=== PATIENT | male | born 1955 | race Caucasian/White ===

== ENCOUNTER 2017-02-20 14:06 | Emergency (ER) | payer MEDICARE ==
[2017-02-20] MEDS ORDERED: OXYCODONE-ACETAMINOPHEN 5-325 MG TABLET PO ONE (15:00)
--- NOTE | 2017-02-20 15:01 | ER Document Report ---
ED Medical Screen (RME) - General Chief Complaint: Headache Stated Complaint: HEADACHE Time Seen by Provider: 02/20/17 14:56 Notes: 3 days of right-sided temporal pain with intermittent blurry vision to his right eye. Patient states 2 days ago he had transient left leg weakness that has resolved. He denies any fevers, neck pain, chest pain, lightheadedness or dizziness. Traumatic brain injury in 2008 secondary to a fall. TRAVEL OUTSIDE OF THE [place] IN LAST 30 DAYS: No - Related Data Allergies/Adverse Reactions: chlorpromazine [From Thorazine] Allergy (Verified 02/20/17 14:14) Past Medical History Renal/ Medical History: Denies: Hx Peritoneal Dialysis Physical Exam - Vital signs Vitals: Temp Pulse Resp BP Pulse Ox 97.9 F 63 15 140/79 H 98 02/20/17 14:14 02/20/17 14:14 02/20/17 14:14 02/20/17 14:14 02/20/17 14:14 Course - Vital Signs Vital signs: Temp Pulse Resp BP Pulse Ox 97.9 F 63 15 140/79 H 98 02/20/17 14:14 02/20/17 14:14 02/20/17 14:14 02/20/17 14:14 02/20/17 14:14
[2017-02-20] MEDS ORDERED: NORMAL SALINE 1000 ML 1,000 ML IV ONE (15:48)
[2017-02-20] MEDS ORDERED: KETOROLAC TROMETHAMINE INJ/PF 30 MG/1 ML SDV IV ONE (15:48)
--- NOTE | 2017-02-20 15:49 | ER Document Report ---
ED Headache - General Chief Complaint: Headache Stated Complaint: HEADACHE Time Seen by Provider: 02/20/17 14:56 Mode of Arrival: Ambulatory Information source: Patient Notes: Patient is a 61-year-old male with a history of high blood pressure who presents to the ER today for 3 days of a headache to his right taoism and the back of his head. Patient has no history of headaches. Patient does state that 4 days ago he had some numbness and tingling, weakness to the left leg only. He states that that is completely resolved at this time. He denies any chest pain, shortness of breath, weakness or numbness anywhere. TRAVEL OUTSIDE OF THE [place] IN LAST 30 DAYS: No - Related Data Allergies/Adverse Reactions: chlorpromazine [From Thorazine] Allergy (Verified 02/20/17 14:14) Past Medical History - General Information source: Patient - Social History Smoking Status: Current Every Day Smoker Family History: Reviewed & Not Pertinent Patient has suicidal ideation: No Patient has homicidal ideation: No Renal/ Medical History: Denies: Hx Peritoneal Dialysis Review of Systems - Review of Systems Constitutional: No symptoms reported EENT: No symptoms reported Cardiovascular: No symptoms reported Respiratory: No symptoms reported Gastrointestinal: No symptoms reported Genitourinary: No symptoms reported Male Genitourinary: No symptoms reported Musculoskeletal: No symptoms reported Skin: No symptoms reported Hematologic/Lymphatic: No symptoms reported Neurological/Psychological: See HPI Physical Exam - Vital signs Vitals: Temp Pulse Resp BP Pulse Ox 97.9 F 63 15 140/79 H 98 02/20/17 14:14 02/20/17 14:14 02/20/17 14:14 02/20/17 14:14 02/20/17 14:14 - Notes Notes: PHYSICAL EXAMINATION: GENERAL: Well-appearing, but in no acute distress. HEAD: Atraumatic, normocephalic. EYES: Pupils equal round and reactive to light, extraocular movements intact, sclera anicteric, conjunctiva are normal. ENT: ear canals without erythema or foreign body, TMs pearly sevilla with good bony landmarks, nares patent, oropharynx clear without exudates. Moist mucous membranes. NECK: Normal range of motion, supple without lymphadenopathy LUNGS: CTAB and equal. No wheezes rales or rhonchi. HEART: Regular rate and rhythm without murmurs ABDOMEN: Soft, no tenderness. No guarding, no rebound BACK: no vertebral tenderness, normal ROM GI/: no CVA tenderness EXTREMITIES: Normal range of motion, no pitting edema. No cyanosis. NEUROLOGICAL: Cranial nerves grossly intact. Normal sensory/motor exams. Good and equal strength bilaterally, Kernig and Brudzinski's signs negative, Romberg' s test normal, normal heel to martínez testing PSYCH: Normal mood, normal affect. SKIN: Warm, Dry, normal turgor, no rashes or lesions noted Course - Re-evaluation Re-evalutation: 02/20/17 17:14 Labs are unremarkable today including normal cardiac enzymes, patient is neurologically intact. CT of the head reveals a subacute posterior cerebral artery infarction, nothing acute. Patient headache is resolved with Toradol and p.o. fluids. 02/20/17 17:14 - Vital Signs Vital signs: Temp Pulse Resp BP Pulse Ox 97.9 F 67 16 138/74 H 98 02/20/17 14:14 02/20/17 17:22 02/20/17 17:22 02/20/17 17:22 02/20/17 17:22 - Laboratory Result Diagrams: 02/20/17 15:49 02/20/17 17:04 Discharge - Discharge Clinical Impression: Recent cerebrovascular accident (CVA) Headache Qualifiers: Headache type: unspecified Headache chronicity pattern: acute headache Intractability: not intractable Qualified Code(s): R51 - Headache Condition: Stable Disposition: HOME, SELF-CARE Additional Instructions: Return immediately for any new or worsening symptoms. Follow up with primary care provider, call tomorrow to make followup appointment. Prescriptions: Naproxen 500 mg PO BID #20 tablet
--- NOTE | 2017-02-20 15:57 | RADIOLOGY REPORT (SQ) ---
EXAM DESCRIPTION: CT HEAD WITHOUT COMPLETED DATE/TIME: 02/20/2017 3:35 pm REASON FOR STUDY: Pit1; right sided temporal headache COMPARISON: None. TECHNIQUE: Axial images acquired through the brain without intravenous contrast. Images reviewed wi th bone, brain and subdural windows. Images stored on PACS. All CT scanners at this facility use dose modulation, iterative reconstruction, and/or weight based d osing when appropriate to reduce radiation dose to as low as reasonably achievable (ALARA). [facility]: Dose Right [facility]: CareDose [facility]: Dose Right [facility]: Teradose 4D [facility]: Smart [employer] RADIATION DOSE: Up-to-date CT equipment and radiation dose reduction techniques were employed. CTDIv ol: 64.6 mGy. DLP: 1163 mGy-cm. mGy. LIMITATIONS: None. FINDINGS: VENTRICLES: Normal size and contour. CEREBRUM: Decreased density in the posterior right parietal lobe and the right occipital lobe appeara nce of which is consistent with subacute infarction. Small amount of increased density in the cortex but no significant hemorrhage. Mild chronic small vessel ischemic disease involving white matter bi laterally. Additional small areas of subacute white matter infarction cannot be excluded. CEREBELLUM: No masses. No hemorrhage. No alteration of density. No evidence for acute infarction. EXTRAAXIAL SPACES: No fluid collections. No masses. ORBITS AND GLOBE: No intra- or extraconal masses. Normal contour of globe without masses. CALVARIUM: No fracture. PARANASAL SINUSES: Mild mucosal thickening in the ethmoid sinuses. SOFT TISSUES: No mass or hematoma. OTHER: No other significant finding. IMPRESSION: 1. Subacute right posterior cerebral artery infarction. 2. Mild chronic small vessel ischemic disease involving the white matter. TECHNICAL DOCUMENTATION: JOB ID: [id number] Quality ID # [id number]: Final reports with documentation of one or more dose reduction techniques (e.g., Au tomated exposure control, adjustment of the mA and/or kV according to patient size, use of iterative reconstruction technique) 2010 [employer]- All Rights Reserved
[2017-02-20 16:02] LABS: ABSOLUTE BASOPHILS # (AUTO) 0.1 10^3/uL (0.0-0.2); ABSOLUTE EOSINOPHILS # (AUTO) 0.1 10^3/uL (0.0-0.6); ABSOLUTE LYMPHOCYTES (AUTO) 2.7 10^3/uL (0.5-4.7); ABSOLUTE NEUT (AUTO) 5.8 10^3/uL (1.7-8.2); BASOPHILS % (AUTO) 0.8 % (0-2); HEMATOCRIT 48.8 % (37.9-51.0); HEMOGLOBIN 16.6 g/dL (13.5-17.0); LYMPHOCYTES % (AUTO) 28.4 % (13-45); MEAN CORPUSCULAR HEMOGLOBIN 31.2 pg (27.0-33.4); MEAN CORPUSCULAR VOLUME 92 fl (80-97); MONOCYTES % (AUTO) 10.4 % (3-13); RED BLOOD COUNT 5.32 10^6/uL (4.35-5.55); RED CELL DISTRIBUTION WIDTH 12.9 % (11.5-14.0); SEGMENTED NEUTROPHILS % (AUTO) 59.4 % (42-78); WHITE BLOOD COUNT 9.7 10^3/uL (4.0-10.5)
[2017-02-20 16:38] LABS: ERYTHROCYTE SEDIMENTATION RATE 13 mm/hr (0-20)
[2017-02-20 17:23] VITALS: BP 138/74
[2017-02-20 17:30] LABS: ANION GAP 13 (5-19); BLOOD UREA NITROGEN 14 mg/dL (7-20); CALCIUM 9.5 mg/dL (8.4-10.2); CARBON DIOXIDE 26 mmol/L (22-30); CHLORIDE 100 mmol/L (98-107); CREATININE RESULT 0.67 mg/dL (0.52-1.25); GLUCOSE 88 mg/dL (75-110); POTASSIUM 4.4 mmol/L (3.6-5.0)
== END 2017-02-20 17:22 | disposition home or self-care (01) ==
LOC: ER 14:06
DX: R51 Headache (principal); I10 Essential (primary) hypertension; F17.200 Nicotine dependence, unspecified, uncomplicated; Z86.73 Personal history of transient ischemic attack (TIA), and cerebral infarction without residual deficits
CPT/HCPCS: 99284; 96374; 36415; 85025; 85652; 80048; 84484; 70450; J1885; A9270

== ENCOUNTER 2017-03-25 07:43 | Emergency (ER) | payer MEDICARE ==
[2017-03-25] MEDS ORDERED: DIPHENHYDRAMINE HCL 50 MG/ML VIAL IV ONE (08:40)
[2017-03-25] MEDS ORDERED: METOCLOPRAMIDE HCL INJ/PF 10 MG/2 ML SDV IV ONE (08:40)
--- NOTE | 2017-03-25 08:43 | ER Document Report ---
ED Headache - General Chief Complaint: Headache Stated Complaint: BLOOD PRESSURE ISSUES,HEADACHE Time Seen by Provider: 03/25/17 08:15 Mode of Arrival: Ambulatory Information source: Patient Notes: Patient presents complaining of right-sided headache pain for the past month. Patient states that he was seen here last month for this complaint and states that nothing was done. Patient has not followed up with a primary doctor since that visit. Patient denies any head injury or fever. Patient states that light makes his headache worse. TRAVEL OUTSIDE OF THE [place] IN LAST 30 DAYS: No - HPI Patient complains to provider of: Headache Patient reports: Prior CVA Onset: Other - 1 month Timing: Still present Quality of pain: Sharp Pain Level: 5 Context: denies: Head injury, Meningitis exposure Associated symptoms: Photophobia. denies: Confusion, Dizzy, Double/blurred vision, Fever, Lightheaded, Nausea/vomiting, Neck pain, Speech problems, Stiff neck Exacerbated by: Light Similar symptoms previously: Yes Recently seen / treated by doctor: Yes - Related Data Allergies/Adverse Reactions: chlorpromazine [From Thorazine] Allergy (Verified 03/25/17 08:08) Past Medical History - General Information source: Patient - Social History Smoking Status: Current Every Day Smoker Chew tobacco use (# tins/day): No Drug Abuse: None Occupation: None Lives with: Spouse/Significant other Family History: Reviewed & Not Pertinent - Medical History Medical History: Negative Renal/ Medical History: Denies: Hx Peritoneal Dialysis Surgical Hx: Negative - Immunizations Hx Diphtheria, Pertussis, Tetanus Vaccination: Yes Review of Systems - Review of Systems Constitutional: No symptoms reported. denies: Fever, Recent illness EENT: No symptoms reported. denies: Sinus pressure, Sinus discharge Cardiovascular: No symptoms reported. denies: Chest pain, Dizziness Respiratory: No symptoms reported. denies: Cough, Short of breath Gastrointestinal: No symptoms reported. denies: Nausea, Vomiting Genitourinary: No symptoms reported Male Genitourinary: No symptoms reported Musculoskeletal: No symptoms reported. denies: Back pain Skin: No symptoms reported Hematologic/Lymphatic: No symptoms reported Neurological/Psychological: denies: Dementia, Weakness, Headaches, Speech impairment, Numbness Physical Exam - Vital signs Vitals: Temp Pulse Resp BP Pulse Ox 97.4 F 68 16 179/99 H 96 03/25/17 07:50 03/25/17 07:50 03/25/17 07:50 03/25/17 07:50 03/25/17 07:50 - General General appearance: Appears well, Alert In distress: None - HEENT Head: Normocephalic, Atraumatic Eyes: Normal Conjunctiva: Normal Extraocular movements intact: Yes Pupils: PERRL Ears: Normal External canal: Normal Nasal: Normal Mouth/Lips: Normal Pharynx: Normal. No: Erythema, Exudate Neck: Normal, Supple. No: Brudzinski, Kernig's, Lymphadenopathy, Meningismus - Respiratory Respiratory status: No respiratory distress Chest status: Nontender Breath sounds: Wheezing - faint scattered. No: Rales, Rhonchi, Stridor Chest palpation: Normal - Cardiovascular Rhythm: Regular Heart sounds: S1 appreciated, S2 appreciated Murmur: No - Back Back: Normal, Nontender. No: CVA tenderness, Vertebra tenderness - Extremities General upper extremity: Normal inspection, Normal ROM General lower extremity: Normal inspection, Normal ROM - Neurological Neuro grossly intact: Yes Cognition: Normal Orientation: AAOx4 [place] Coma Scale Eye Opening: Spontaneous [place] Coma Scale Verbal: Oriented [place] Coma Scale Motor: Obeys Commands [place] Coma Scale Total: 15 Speech: Normal. No: Dysarthria Cranial nerves: Normal. No: Facial palsy, Tongue deviation Cerebellar coordination: Normal, Heel-martínez, Finger-nose rhombey, Rapid alt. movements. No: Gait ataxia Motor strength normal: LUE, RUE, LLE, RLE Additional motor exam normals: Equal cardiologist - Psychological Associated symptoms: Aggressive, Angry - Skin Skin Temperature: Warm Skin Moisture: Dry Skin Color: Normal Course - Re-evaluation Re-evalutation: 03/25/17 08:[address] rao who advises repeating ct of head 03/25/17 10:21 pt refuses IV, requests oral medication for GONZALEZ 03/25/17 10:35 Reviewed results of patient's CT report with Dr. Rao. Recommends starting patient on antihypertensive medication. Patient is refusing any lab work to be drawn today. Agrees with discharge plan of care 03/25/17 11:51 Patient reports that headache pain is a most completely resolved at this time. Discussed worsening signs or symptoms that patient should return immediately for. Patient advised that he will need to follow-up with a primary doctor to further evaluate why he had a stroke and to follow-up his blood pressure. Patient states his does have a blood pressure monitor at home and can check his blood pressure. Patient without any focal neurologic deficit at this time. - Vital Signs Vital signs: Temp Pulse Resp BP Pulse Ox 97.6 F 59 L 20 143/87 H 98 03/25/17 12:03 03/25/17 12:03 03/25/17 12:03 03/25/17 12:03 03/25/17 12:03 - Diagnostic Test Radiology reviewed: Reports reviewed Discharge - Discharge Clinical Impression: Hypertension Qualifiers: Hypertension type: unspecified Qualified Code(s): I10 - Essential (primary) hypertension Headache Qualifiers: Headache type: unspecified Headache chronicity pattern: unspecified pattern Intractability: not intractable Qualified Code(s): R51 - Headache Condition: Stable Disposition: HOME, SELF-CARE Instructions: Family Physicians / Practices, Headache ([facility]), High Blood Pressure, Requiring Treatment ([facility]), Stroke ([facility]) Additional Instructions: Return immediately for any new or worsening symptoms Followup with a primary care provider, call tomorrow to make a followup appointment Take a baby aspirin each day to help minimize future stroke risk Prescriptions: Amlodipine Besylate 5 mg PO DAILY #30 tab Butalb/Acetaminophen/Caffeine [Fioricet (50-325-40 mg) Tablet] 1 - 2 tab PO Q4H #12 each [facility]: [facility] [Provider Group] - Follow up tomorrow
[2017-03-25] MEDS ORDERED: METOCLOPRAMIDE HCL 10 MG TABLET PO ONE (10:20)
[2017-03-25] MEDS ORDERED: DIPHENHYDRAMINE HCL 50 MG CAPSULE PO ONE (10:20)
[2017-03-25] MEDS ORDERED: ACETAMINOPHEN 325 MG TABLET PO ONE (10:20)
--- NOTE | 2017-03-25 10:21 | RADIOLOGY REPORT (SQ) ---
EXAM DESCRIPTION: CT HEAD WITHOUT COMPLETED DATE/TIME: 03/25/2017 10:12 am REASON FOR STUDY: r side GONZALEZ COMPARISON: 02/20/2017 TECHNIQUE: Axial images acquired through the brain without intravenous contrast. Images reviewed wi th bone, brain and subdural windows. Images stored on PACS. All CT scanners at this facility use dose modulation, iterative reconstruction, and/or weight based d osing when appropriate to reduce radiation dose to as low as reasonably achievable (ALARA). [facility]: Dose Right [facility]: CareDose [facility]: Dose Right [facility]: Teradose 4D [facility]: Smart [employer] RADIATION DOSE: Up-to-date CT equipment and radiation dose reduction techniques were employed. CTDIv ol: 64.6 mGy. DLP: 1163 mGy-cm. mGy. LIMITATIONS: None. FINDINGS: VENTRICLES: Prominent. CEREBRUM: No masses. No hemorrhage. No midline shift. Stable areas of chronic infarction involving the right cerebral hemisphere. Additional areas of of low density in the white matter most likely d ue to chronic micro-vascular ischemic change. No evidence for acute infarction. CEREBELLUM: No masses. No hemorrhage. No alteration of density. No evidence for acute infarction. EXTRAAXIAL SPACES: Mild age-related involutional change. No fluid collections. No masses. ORBITS AND GLOBE: No intra- or extraconal masses. Normal contour of globe without masses. CALVARIUM: No fracture. PARANASAL SINUSES: No fluid or mucosal thickening. SOFT TISSUES: No mass or hematoma. OTHER: No other significant finding. IMPRESSION: NO CT EVIDENCE OF ACUTE ISCHEMIA, HEMORRHAGE, OR MASS LESION. NO SIGNIFICANT CHANGE FRO M PRIOR STUDY. TECHNICAL DOCUMENTATION: JOB ID: [id number] Quality ID # 436: Final reports with documentation of one or more dose reduction techniques (e.g., Au tomated exposure control, adjustment of the mA and/or kV according to patient size, use of iterative reconstruction technique) 2010 [employer]- All Rights Reserved
[2017-03-25] MEDS ORDERED: AMLODIPINE BESYLATE 5 MG TABLET PO ONE (10:57)
[2017-03-25 12:04] VITALS: BP 143/87
== END 2017-03-25 12:04 | disposition home or self-care (01) ==
LOC: ER 07:43
DX: I10 Essential (primary) hypertension (principal); R51 Headache; H53.149 Visual discomfort, unspecified; R06.2 Wheezing; R45.4 Irritability and anger; F17.200 Nicotine dependence, unspecified, uncomplicated; Z88.8 Allergy status to other drugs, medicaments and biological substances
CPT/HCPCS: 99284; 70450; A9270 ×4

== ENCOUNTER → 2018-10-30 | Day surgery (SDC) | payer MEDICARE ==
[~2018-10-30] MED LIST: LIDOCAINE 1% INJ-PF (10 MG/ML) 30 ML SDV ONE
--- NOTE | 2018-10-30 13:08 | RADIOLOGY REPORT (SQ) ---
EXAM DESCRIPTION: U/S BIOPSY SUPERFIC LYMPH NODE COMPLETED DATE/TIME: 10/30/2018 11:17 am REASON FOR STUDY: R59.0 LOCALIZED ENLARGED LYMPH NODES R59.0 LOCALIZED ENLARGED LYMPH NODES COMPARISON: None. LIMITATIONS: None. PROCEDURE: The procedure was explained to the patient, including the possibility of complications as bleeding and infection. The patient asked that we proceed with the procedure. The enlarged left submandibular triangle lymph node was localized with ultrasound. Lymph node measur es 4 x 3 x 2 cm in size. Standard sterile technique and local anesthesia with 3 mL of 1% Lidocaine targeted to the right subma ndibular triangle nodule. With direct ultrasound visualization, a 14 gauge core needle was advanced into the nodule. 1 core of tissue was submitted to Dr. Scott from pathology. She stated that the s pecimen was adequate for diagnosis. Pathology is pending. A ribbon clip was placed in the biopsied left submandibular triangle lymph node. No immediate postprocedure complications. IMPRESSION: Successful ultrasound guided biopsy of a 4 x 3 x 2 cm left submandibular triangle lymph node. Pathology is pending. COMMENT: Patient medication list reviewed:Yes- Quality ID# [id number]:Eligible professional attests to docu menting in the medical record they obtained, updated, or reviewed the patient's current medications. TECHNICAL DOCUMENTATION: JOB ID: [id number] [employer]- All Rights Reserved TECHNIQUE: SITE OF CONCERN: Left submandibular triangle Reading location - IP/workstation name: [email or web address]
== END ==
LOC: RAD 09:31
PROVIDERS: ATTEND Internal Medicine Geriatric Medicine
DX: C96.9 Malignant neoplasm of lymphoid, hematopoietic and related tissue, unspecified (principal); R59.0 Localized enlarged lymph nodes
CPT/HCPCS: 88342 ×2; 88341 ×2; 88305 ×2; 88172; 38505; J3490

== ENCOUNTER → 2019-01-13 | Outpatient (CLI) | payer MEDICARE ==
[~2019-01-13] MED LIST changes: +ALBUTEROL SULFATE 0.083% NEB 2.5 MG/3 ML AMPUL NEB ONE; -LIDOCAINE 1% INJ-PF (10 MG/ML) 30 ML SDV ONE
== END ==
LOC: RT 12:53
PROVIDERS: ATTEND Family Medicine Geriatric Medicine
DX: R06.2 Wheezing (principal); F17.200 Nicotine dependence, unspecified, uncomplicated
CPT/HCPCS: 94729; 94727; 94060; 94760; A9270

== ENCOUNTER 2019-04-16 13:04 | Day surgery (SDC) | payer MEDICARE ==
[~2019-04-16 13:04] MED LIST changes: -ALBUTEROL SULFATE 0.083% NEB 2.5 MG/3 ML AMPUL NEB ONE; +CEFAZOLIN 1 GM/D5W RTU 1 GM/50 ML RTUPB IV PRN; +LIDOCAINE 1%/EPINEPHRINE INJ 20 ML VIAL ONE
[2019-04-16] MEDS ORDERED: ONDANSETRON HCL INJ/PF 4 MG/2 ML SDV ONE (13:26)
[2019-04-16] MEDS ORDERED: FENTANYL CITRATE INJ/PF 100 MCG/2 ML AMPUL ONE (13:26)
[2019-04-16] MEDS ORDERED: MIDAZOLAM 2 MG/2 ML INJ ONE (13:26)
[2019-04-16] MEDS ORDERED: PROPOFOL INJ 200 MG/20 ML VIAL IV ONE (13:27)
[2019-04-16] MEDS ORDERED: OXYCODONE-ACETAMINOPHEN 5-325 MG TABLET PO PRN ×2 (13:34)
[2019-04-16] MEDS ORDERED: MEPERIDINE HCL/PF INJ 25 MG/1 ML DISP.SYRIN IV PRN (13:34)
[2019-04-16] MEDS ORDERED: DIPHENHYDRAMINE HCL 50 MG/ML VIAL IV PRN (13:34)
[2019-04-16] MEDS ORDERED: FENTANYL CITRATE INJ/PF 100 MCG/2 ML AMPUL IV PRN ×3 (13:34)
[2019-04-16] MEDS ORDERED: MORPHINE SULFATE 10 MG/ML INJ IV PRN (13:34)
[2019-04-16] MEDS ORDERED: ONDANSETRON HCL INJ/PF 4 MG/2 ML SDV IV PRN (13:34)
[2019-04-16] MEDS ORDERED: CEFAZOLIN 1 GM/D5W RTU 1 GM/50 ML RTUPB IV ONE (13:55)
[2019-04-16 14:43] LABS: ABSOLUTE BASOPHILS # (AUTO) 0.1 10^3/uL (0.0-0.2); ABSOLUTE EOSINOPHILS # (AUTO) 0.3 10^3/uL (0.0-0.6); ABSOLUTE LYMPHOCYTES (AUTO) 2.6 10^3/uL (0.5-4.7); ABSOLUTE NEUT (AUTO) 5.7 10^3/uL (1.7-8.2); BASOPHILS % (AUTO) 1.2 % (0-2); EOSINOPHILS % (AUTO) 3.4 % (0-6); HEMATOCRIT 47.1 % (37.9-51.0); HEMOGLOBIN 16.4 g/dL (13.5-17.0); MEAN CORPUSCULAR HEMOGLOBIN 31.3 pg (27.0-33.4); MEAN CORPUSCULAR HGB CONC 34.8 g/dL (32.0-36.0); MEAN CORPUSCULAR VOLUME 90 fl (80-97); MONOCYTES % (AUTO) 10.5 % (3-13); PLATELET COUNT 145 10^3/uL (150-450); RED BLOOD COUNT 5.24 10^6/uL (4.35-5.55); RED CELL DISTRIBUTION WIDTH 12.5 % (11.5-14.0); SEGMENTED NEUTROPHILS % (AUTO) 57.9 % (42-78); TOTAL CELLS COUNTED % (AUTO) 100 %; WHITE BLOOD COUNT 9.8 10^3/uL (4.0-10.5)
[2019-04-16 15:02] LABS: ANION GAP 11 (5-19); BLOOD UREA NITROGEN 15 mg/dL (7-20); CALCIUM 9.5 mg/dL (8.4-10.2); CARBON DIOXIDE 25 mmol/L (22-30); CHLORIDE 102 mmol/L (98-107); GLUCOSE 100 mg/dL (75-110); POTASSIUM 4.9 mmol/L (3.6-5.0)
--- NOTE | 2019-04-16 16:39 | Discharge Summary ---
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 Rushing 2 weeks and also surgical clinic Referrals: SADA MO MD [Primary Care Provider] - Discharge Diet: As Tolerated Discharge Activity: Activity As Tolerated Home Care Assistance: None Needed Report the Following to Your Physician Immediately: Shortness of Breath, Increase in Pain, Fever over 101 Degrees
--- NOTE | 2019-04-16 16:51 | Operative Report ---
Operative Report DATE OF SURGERY: 04/16/19 PREOPERATIVE DIAGNOSIS: Squamous cell carcinoma of the tonsil POSTOPERATIVE DIAGNOSIS: Same OPERATION: 1. Focused ultrasound of the right neck. 2. Ultrasound directed right subclavian port placement. 3. Esophagogastroduodenoscopy with gastric biopsy. 4. Percutaneous endoscopic gastrostomy, 20 Cypriot SURGEON: HUGO DURAND ANESTHESIA: LMAC TISSUE REMOVED OR ALTERED: Mucosal biopsy of gastric antrum COMPLICATIONS: None ESTIMATED BLOOD LOSS: Scant INTRAOPERATIVE FINDINGS: See below PROCEDURE: Patient was seen in preop holding area, right neck marked, then patient taken to the main operating room where LMAC anesthesia was induced, arms tucked, right neck and chest wall prepped and draped sterile fashion with Betadine. Surgical plan surgical timeout were conducted. Skin was anesthetized 1% plain lidocaine. Using ultrasound as a guide, a micro needle and wire were threaded into the right internal jugular vein without difficulty. A suitable site was chosen for port placement. Skin anesthetized 1% plain lidocaine. A 3 and half centimeter incision was made in the right subclavian area parallel to the clavicle. A port pocket was developed large enough to accommodate a single-chamber port. The catheter was then turned to th e appropriate length, tunneled between the 2 incisions, attached to the port, and ring secured into position. The port was tucked into the right subclavian position. The micro wire was switched over to a conventional 0.030 guidewire using the 5 Cypriot introducer sheath. A 9 Cypriot dilator and sheath were threaded over the wire, wire dilator removed, and catheter threaded into the right internal jugular vein. Strip away sheath was removed leaving the catheter appropriate position with the tip of the catheter in the superior vena cava right atrial junction. There is no kinking of the catheter. Catheter was aspirated and flushed with heparinized saline, then the incisions closed with 3-0 Vicryl benzoin and Steri-Strips Patient was repositioned for upper endoscopy. Follow-up timeout was conducted. Flexible adult upper endoscope was advanced to the oropharynx, down the esophagus without difficulty then into the stomach, and finally the first and second portion of the duodenum. No evidence of obstruction. The stomach was significant for diffuse cobblestoning consistent with severe, chronic gastritis. Multiple photographs were taken and a random biopsy gastric antrum was obtained for MARLENA testing. Biopsy was minimal. Suitable site for placement of PEG tube was selected in the left upper quadrant. Transillumination of the intra-abdominal wall was achieved. Skin in the left upper quadrant was anesthetized with 1% plain lidocaine after prepping the skin with Betadine. Small incision was made with a #11 blade, Jelco threaded through the anterior abdominal wall, and wire threaded through the Jelco. The wire was retrieved with the snare through the endoscope in the scope, snare, and wire all pulled out through the patient's oropharynx. 20 Cypriot feeding tube was then attached to the loop wire and the wire brought up through the anterior abdominal wall in a prograde fashion pulling the feeding tube with it. Tube was positioned with approximately 4-1/2 to 5 cm from bolster to skin. Bolster was applied after trimming the feeding tube; clamp and adapter also attached. A repeat upper endoscopic was performed uneventfully and examination of the feeding tube confirmed to be in good position without any bleeding. Photos were taken. The endoscope was removed from the patient's oropharynx. Dressings for the feeding tube were applied. Patient tolerated procedure well, taken recovery in stable condition.
--- NOTE | 2019-04-16 17:03 | RADIOLOGY REPORT (SQ) ---
EXAM DESCRIPTION: CHEST SINGLE VIEW; FLUORO/CV PLACEMENT COMPLETED DATE/TIME: 04/16/2019 4:20 pm REASON FOR STUDY: PORTACATH PLACEMENT C09.1 MALIG NEOPLASM OF TONSILLAR PILLAR (ANTERIOR) (POSTERI COMPARISON: None. FLUOROSCOPY TIME: 0.2 minutes 1 images saved to PACS. TECHNIQUE: Intra-operative images acquired during surgical procedure to evaluate progress. NUMBER OF IMAGES: 1 LIMITATIONS: None. FINDINGS: Single limited field of view spot image shows Port-A-Cath in place. Please correlate with operative note. IMPRESSION: IMAGE(S) OBTAINED DURING PROCEDURE. COMMENT: Quality ID 145: Final reports for procedures using fluoroscopy that document radiation exp osure indices, or exposure time and number of fluorographic images (if radiation exposure indices are not available) Please consult full operative report of the attending physician for description of the procedure. TECHNICAL DOCUMENTATION: JOB ID: [id number] [employer]- All Rights Reserved Reading location - IP/workstation name: [email or web address]
--- NOTE | 2019-04-16 17:03 | RADIOLOGY REPORT (SQ) ---
EXAM DESCRIPTION: CHEST SINGLE VIEW; FLUORO/CV PLACEMENT COMPLETED DATE/TIME: 04/16/2019 4:20 pm REASON FOR STUDY: PORTACATH PLACEMENT C09.1 MALIG NEOPLASM OF TONSILLAR PILLAR (ANTERIOR) (POSTERI COMPARISON: None. FLUOROSCOPY TIME: 0.2 minutes 1 images saved to PACS. TECHNIQUE: Intra-operative images acquired during surgical procedure to evaluate progress. NUMBER OF IMAGES: 1 LIMITATIONS: None. FINDINGS: Single limited field of view spot image shows Port-A-Cath in place. Please correlate with operative note. IMPRESSION: IMAGE(S) OBTAINED DURING PROCEDURE. COMMENT: Quality ID 145: Final reports for procedures using fluoroscopy that document radiation exp osure indices, or exposure time and number of fluorographic images (if radiation exposure indices are not available) Please consult full operative report of the attending physician for description of the procedure. TECHNICAL DOCUMENTATION: JOB ID: [id number] [employer]- All Rights Reserved Reading location - IP/workstation name: [email or web address]
[2019-04-16 18:33] VITALS: BP 159/96
--- NOTE | 2019-04-16 22:18 | EKG REPORT ---
SEVERITY:- ABNORMAL ECG - SINUS RHYTHM LAD, CONSIDER LEFT ANTERIOR FASCICULAR BLOCK : Confirmed by: Jeanette Lester MD 16-Apr-2019 22:18:12
== END 2019-04-16 18:40 | disposition home or self-care (01) ==
LOC: OROUT 13:04
PROVIDERS: ATTEND Surgery
DX: C09.1 Malignant neoplasm of tonsillar pillar (anterior) (posterior) (principal); J45.909 Unspecified asthma, uncomplicated; F17.210 Nicotine dependence, cigarettes, uncomplicated; G40.909 Epilepsy, unspecified, not intractable, without status epilepticus; Z86.73 Personal history of transient ischemic attack (TIA), and cerebral infarction without residual deficits; Z87.820 Personal history of traumatic brain injury; Z79.51 Long term (current) use of inhaled steroids
CPT/HCPCS: 36415; 85025; 80048; 88342 ×2; 88305 ×2; 71045; 77001; 93005; 93010; 00532; C1752; C1788; J2250; J0690; J3010; J3490; J2405; J2704; J1642; 532

== ENCOUNTER 2019-04-24 08:53 | Outpatient (CLI) | payer MEDICARE ==
[2019-04-24] MEDS ORDERED: DEXAMETHASONE 10 MG in NS 50 ML IV PRN (09:00)
[2019-04-24] MEDS ORDERED: DIPHENHYDRAMINE 50 MG in NS 50 ML IV PRN ×2 (09:01→09:07)
[2019-04-24] MEDS ORDERED: FAMOTIDINE 20 MG in NS 50 ML IV PRN ×2 (09:02→09:07)
[2019-04-24] MEDS ORDERED: PALONOSETRON 0.25 MG/5 ML VIAL IV PRN ×2 (09:02→09:08)
[2019-04-24] MEDS ORDERED: NORMAL SALINE 250 ML @ KVO IV PRN ×2 (09:03→09:05)
[2019-04-24] MEDS ORDERED: DEXAMETHASONE SOD PHOSPHATE 20 MG in NORMAL SALINE 50 ML IV PRN (09:06)
[2019-04-24] MEDS ORDERED: CETUXIMAB IV PRN (09:13)
[2019-04-24] MEDS ORDERED: CONTAINER EMPTY IV PRN (09:13)
[2019-04-24] MEDS ORDERED: NORMAL SALINE IV PRN (09:15)
[2019-04-24] MEDS ORDERED: DOCETAXEL IV PRN (09:15)
[2019-04-24] MEDS ORDERED: CARBOPLATIN 625 MG in NORMAL SALINE 250 ML IV PRN (09:17)
[2019-04-24 09:23] VITALS: BP 122/81
== END 2019-04-24 15:26 | disposition home or self-care (01) ==
LOC: II 08:53 → 5TH 09:22 → II 15:26
PROVIDERS: ATTEND Internal Medicine
PROC: 3E04305 Introduction of Other Antineoplastic into Central Vein, Percutaneous Approach (ICD-10-PCS; principal; 2019-04-24)
PROC: 3E0430M Introduction of Antineoplastic, Monoclonal Antibody, into Central Vein, Percutaneous Approach (ICD-10-PCS; 2019-04-24)
PROC: 3E0433Z Introduction of Anti-inflammatory into Central Vein, Percutaneous Approach (ICD-10-PCS; 2019-04-24)
PROC: 3E043GC Introduction of Other Therapeutic Substance into Central Vein, Percutaneous Approach (ICD-10-PCS; 2019-04-24)
DX: Z51.11 Encounter for antineoplastic chemotherapy (principal); C09.1 Malignant neoplasm of tonsillar pillar (anterior) (posterior)
CPT/HCPCS: 96413; 96415; 96367; 96375; 96417; J1200; J9045; A9270; J9171; J7050; S0028; J1100; J1642; J2469; J9055; J3490

== ENCOUNTER 2019-05-07 15:28 | Emergency (ER) | payer MEDICARE ==
[2019-05-07 16:10] VITALS: BP 126/70
[2019-05-07] MEDS ORDERED: NORMAL SALINE 1000 ML 1,000 ML IV ONE (16:19)
[2019-05-07 16:26] LABS: HEMATOCRIT 37.1 % (37.9-51.0); HEMOGLOBIN 12.8 g/dL (13.5-17.0); MEAN CORPUSCULAR HEMOGLOBIN 31.3 pg (27.0-33.4); MEAN CORPUSCULAR HGB CONC 34.4 g/dL (32.0-36.0); MEAN CORPUSCULAR VOLUME 91 fl (80-97); PLATELET COUNT 123 10^3/uL (150-450); RED BLOOD COUNT 4.08 10^6/uL (4.35-5.55); RED CELL DISTRIBUTION WIDTH 12.4 % (11.5-14.0); WHITE BLOOD COUNT 10.4 10^3/uL (4.0-10.5)
--- NOTE | 2019-05-07 16:44 | ER Document Report ---
ED General - General Chief Complaint: Abnormal Lab Results Stated Complaint: ABNORMAL LABS Time Seen by Provider: 05/07/19 15:58 Primary Care Provider: TY DOMINGUEZ MD [ACTIVE STAFF] - Follow up in 3-5 days SADA MO MD [Primary Care Provider] - Follow up as needed Notes: Patient is a 63-year-old male who was sent to the emergency department by his oncologist, angiogram for dehydration and acute kidney injury. Patient denies any symptoms. He did state that he had some diarrhea for the past 3 days. Prior to that he had some vomiting. Patient denies any symptoms at this time. Denies any nausea. Patient has a history of tonsillar cancer and started chemotherapy on April 23. Prior to that on April 16, patient had a 40 PEG tube placed. 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 He also takes lorazepam for anxiety. TRAVEL OUTSIDE OF THE [place] IN LAST 30 DAYS: No - Related Data Allergies/Adverse Reactions: chlorpromazine [From Thorazine] Allergy (Verified 03/25/17 08:08) Past Medical History - Social History Smoking Status: Current Every Day Smoker Frequency of alcohol use: None Drug Abuse: None Family History: Reviewed & Not Pertinent Patient has suicidal ideation: No Patient has homicidal ideation: No - Past Medical History Cardiac Medical History: Reports: Hx Hypertension Denies: Hx Coronary Artery Disease, Hx Heart Attack Pulmonary Medical History: Reports: Hx Asthma, Hx COPD Denies: Hx Bronchitis, Hx Pneumonia Neurological Medical History: Reports: Hx Cerebrovascular Accident - 2007, Hx Seizures - TBI Renal/ Medical History: Denies: Hx Peritoneal Dialysis Musculoskeletal Medical History: Reports Hx Arthritis Past Surgical History: Reports: Hx Abdominal Surgery - peg tube - Immunizations Hx Diphtheria, Pertussis, Tetanus Vaccination: No Review of Systems - Review of Systems Notes: REVIEW OF SYSTEMS: CONSTITUTIONAL : Denies recent illness. Denies recent unintentional weight loss. Denies fever, chills, or sweats. EENT: Denies eye, ear, throat, or mouth pain, discharge, or symptoms. Denies nasal or sinus congestion. CARDIOVASCULAR: Denies chest pain. RESPIRATORY: Denies shortness of breath, cough, congestion, difficulty b reathing, or wheezing. GASTROINTESTINAL: See HPI. GENITOURINARY: Denies difficulty urinating, burning, blood in urine, urgency or frequency. MUSCULOSKELETAL: Denies neck and back pain. Denies joint pain or swelling. SKIN: Denies rash, itchiness, or lesions HEMATOLOGIC : Denies easy bruising or bleeding. LYMPHATIC: Denies swollen, painful, enlarged glands. NEUROLOGICAL: Denies no numbness or tingling denies weakness. Denies headache. Denies altered mental status. Denies alteration in speech. PSYCHIATRIC: Denies stress, anxiety, alteration in sleep patterns, or depression. All other systems reviewed and negative. Physical Exam - Vital signs Vitals: Pulse Ox 97 05/07/19 15:33 - Notes Notes: PHYSICAL EXAMINATION: GENERAL: Appears well, healthy, well-nourished, no acute distress. HEAD: Normocephalic, atraumatic. EYES: PERRL, conjunctiva normal, all extraocular movements intact, sclera nonicteric ENT: Dry mucous membranes. NECK: Supple, no noticeable swelling, redness, rash. Normal range of motion. LUNGS: Equal breath sounds bilaterally and clear to auscultation. No wheezes rales or rhonchi. CARDIOVASCULAR: S1-S2, regular rate, regular rhythm. Radial pulses 2+, normal. ABDOMEN: Normoactive bowel sounds. Soft, nontender, no guarding, no rebound tenderness, and no masses palpated. PEG tube in place. EXTREMITIES: Normal strength and range of motion, no pitting or edema. No cyanosis. NEUROLOGICAL: Moves all extremities upon command. Strength 5/5 in all extremities. PSYCH: Normal mood, normal affect. SKIN: Warm, dry. No rash, lesions, ulcerations noted. Normal skin turgor. Course - Re-evaluation Re-evalutation: 05/07/19 17:49 Patient's potassium is 3.1 is corrected calcium is normal. This patient received a liter of fluids. His states that ever since he has taken Zofran, he has stopped vomiting, but continues to have diarrhea. I will give him a dose of Imodium here in the emergency department. Also write a prescription for Zofran and Imodium for him to go home with. I discussed this case with Dr. Starr, who is excavation laborer for Dr. Dominguez. She is in agreement for patient to go home since patient does not have worsening renal function. He will follow-up with Dr. Dominguez as needed. Follow-up precautions were given. Verbal discharge instructions were given to the patient. They verbalized understanding. They are stable for discharge. - Vital Signs Vital signs: Temp Pulse Resp BP Pulse Ox 97.8 F 22 H 126/70 H 94 05/07/19 15:45 05/07/19 16:01 05/07/19 16:01 05/07/19 16:01 - Laboratory Result Diagrams: 05/07/19 16:00 05/07/19 16:00 Laboratory results interpreted by me: 05/07/19 05/07/19 16:00 16:00 RBC 4.08 L Hgb 12.8 L Hct 37.1 L Plt Count 123 L Metamyelocytes % 1 H Sodium 134.8 L Potassium 3.1 L Glucose 132 H Calcium 8.1 L Total Protein 5.5 L Albumin 2.7 L Discharge - Discharge Clinical Impression: Diarrhea Qualifiers: Diarrhea type: unspecified type Qualified Code(s): R19.7 - Diarrhea, unspecified Nausea and vomiting Qualifiers: Vomiting type: unspecified Vomiting Intractability: unspecified Qualified Code(s): R11.2 - Nausea with vomiting, unspecified Condition: Stable Disposition: HOME, SELF-CARE Instructions: Antinausea Medication ([facility]), Diarrhea, Nonspecific ([facility]), Vomiting ([facility]) Additional Instructions: You were seen today in the emergency department for abnormal outpatient labs. Your labs are normal here in the emergency department. Your potassium was a little low and it was replaced here in the emergency department. Continue to take your Zofran that you have at home. You also have been prescribed more Zofran. You are also being prescribed Imodium for diarrhea. Take as prescr ibed. You can also buy this [id number]. You can also start bananas, rice, applesauce, and toast to help with diarrhea. Please follow with with your primary care provider and your oncologist in regards to this visit. Prescriptions: Loperamide HCl [Loperamide] 1 mg PO Q6HP PRN #15 ml PRN Reason: Ondansetron [Zofran Odt 4 mg Tablet] 1 - 2 tab PO Q4H PRN #40 tab.rapdis PRN Reason: For Nausea/Vomiting Referrals: SADA MO MD [Primary Care Provider] - Follow up as needed TY DOMINGUEZ MD [ACTIVE STAFF] - Follow up in 3-5 days
[2019-05-07 16:45] LABS: ALBUMIN 2.7 g/dL (3.5-5.0); ALKALINE PHOSPHATASE 69 U/L (38-126); ANION GAP 8 (5-19); ASPARTATE AMINO TRANSFERASE 20 U/L (17-59); BILIRUBIN,DIRECT 0.1 mg/dL (0.0-0.4); BILIRUBIN,TOTAL 0.4 mg/dL (0.2-1.3); BLOOD UREA NITROGEN 10 mg/dL (7-20); CALCIUM 8.1 mg/dL (8.4-10.2); CARBON DIOXIDE 28 mmol/L (22-30); CHLORIDE 99 mmol/L (98-107); GLUCOSE 132 mg/dL (75-110); POTASSIUM 3.1 mmol/L (3.6-5.0); TOTAL PROTEIN 5.5 g/dL (6.3-8.2)
[2019-05-07 16:52] LABS: ABSOLUTE LYMPHOCYTES# (MANUAL) 1.9 10^3/uL (0.5-4.7); ABSOLUTE MONOCYTES # (MANUAL) 0.4 10^3/uL (0.1-1.4); BAND NEUTROPHILS % (MANUAL) 5 % (3-5); BASOPHILS % (MANUAL) 0 % (0-2); EOSINOPHILS % (MANUAL) 0 % (0-6); LYMPHOCYTES % (MANUAL) 18 % (13-45); METAMYELOCYTES % (MANUAL) 1 % (0); MONOCYTES % (MANUAL) 4 % (3-13); PLATELET COMMENT DECREASED; RBC MORPHOLOGY COMMENT NORMO-CYTIC/CHROMIC; SEGMENTED NEUTROPHILS % (MAN) 72 % (42-78); TOTAL CELLS COUNTED 100
[2019-05-07] MEDS ORDERED: POTASSIUM CHLORIDE 10 MEQ CAPSULE.ER PO ONE (17:37)
[2019-05-07] MEDS ORDERED: LOPERAMIDE HCL 2 MG CAPSULE PO ONE (17:54)
== END 2019-05-07 18:22 | disposition home or self-care (01) ==
LOC: ER 15:28
DX: R19.7 Diarrhea, unspecified (principal); R11.2 Nausea with vomiting, unspecified; I10 Essential (primary) hypertension; J44.9 Chronic obstructive pulmonary disease, unspecified; F17.200 Nicotine dependence, unspecified, uncomplicated; C09.9 Malignant neoplasm of tonsil, unspecified; F41.9 Anxiety disorder, unspecified; Z79.899 Other long term (current) drug therapy
CPT/HCPCS: 36415; 85025; 80053; A9270 ×2; J7030; J1642

== ENCOUNTER 2019-05-08 09:33 | Outpatient (CLI) | payer MEDICARE ==
[~2019-05-08 09:33] MED LIST changes: -CEFAZOLIN 1 GM/D5W RTU 1 GM/50 ML RTUPB IV PRN; +CETUXIMAB IV PRN; +CONTAINER EMPTY IV PRN; +DIPHENHYDRAMINE 50 MG in NS 50 ML IV PRN; -LIDOCAINE 1%/EPINEPHRINE INJ 20 ML VIAL ONE; +NORMAL SALINE 250 ML @ KVO IV PRN
[2019-05-08 09:53] VITALS: BP 119/70
== END 2019-05-08 11:48 | disposition home or self-care (01) ==
LOC: II 09:33 → 5TH 09:38 → II 11:48
PROVIDERS: ATTEND Internal Medicine
PROC: 3E0430M Introduction of Antineoplastic, Monoclonal Antibody, into Central Vein, Percutaneous Approach (ICD-10-PCS; principal; 2019-05-08)
PROC: 3E043GC Introduction of Other Therapeutic Substance into Central Vein, Percutaneous Approach (ICD-10-PCS; 2019-05-08)
DX: Z51.11 Encounter for antineoplastic chemotherapy (principal); C09.1 Malignant neoplasm of tonsillar pillar (anterior) (posterior)
CPT/HCPCS: 96413; 96367; J1200; A9270; J1642; J9055 ×2; J3490

== ENCOUNTER 2019-05-22 08:44 | Outpatient (CLI) | payer MEDICARE ==
[~2019-05-22 08:44] MED LIST changes: +CARBOPLATIN IV PRN; +DEXAMETHASONE 10 MG in NS 50 ML IV PRN; +DEXAMETHASONE SOD PHOSPHATE 20 MG in NORMAL SALINE 50 ML IV PRN; +DOCETAXEL IV PRN; +FAMOTIDINE 20 MG in NS 50 ML IV PRN; +NORMAL SALINE IV PRN; +PALONOSETRON 0.25 MG/5 ML VIAL IV PRN
[2019-05-22] MEDS ORDERED: FOSAPREPITANT 150 MG in NS 150 ML IV PRN (09:05)
[2019-05-22 09:08] VITALS: BP 116/77
== END 2019-05-22 14:50 | disposition home or self-care (01) ==
LOC: II 08:44 → 5TH 08:47 → II 14:50
PROVIDERS: ATTEND Internal Medicine
PROC: 3E0430M Introduction of Antineoplastic, Monoclonal Antibody, into Central Vein, Percutaneous Approach (ICD-10-PCS; principal; 2019-05-22)
PROC: 3E04305 Introduction of Other Antineoplastic into Central Vein, Percutaneous Approach (ICD-10-PCS; 2019-05-22)
PROC: 3E0433Z Introduction of Anti-inflammatory into Central Vein, Percutaneous Approach (ICD-10-PCS; 2019-05-22)
PROC: 3E043GC Introduction of Other Therapeutic Substance into Central Vein, Percutaneous Approach (ICD-10-PCS; 2019-05-22)
DX: Z51.11 Encounter for antineoplastic chemotherapy (principal); C09.1 Malignant neoplasm of tonsillar pillar (anterior) (posterior)
CPT/HCPCS: 96413; 96367; 96375; 96417; J1200; J9045; A9270; J7050 ×2; S0028; J1100; J1453; J2469; J9055; J9171; J1642; J3490

== ENCOUNTER → 2019-05-26 | Outpatient (CLI) | payer MEDICARE | LOC: RAD 13:50 | PROVIDERS: ATTEND Physician Assistant Medical | DX: C09.1 Malignant neoplasm of tonsillar pillar (anterior) (posterior) (principal) | CPT/HCPCS: 70491; J1642 ==

== ENCOUNTER 2019-05-29 11:10 | Outpatient (CLI) | payer MEDICARE ==
[~2019-05-29 11:10] MED LIST changes: -CARBOPLATIN IV PRN; -DEXAMETHASONE 10 MG in NS 50 ML IV PRN; -DEXAMETHASONE SOD PHOSPHATE 20 MG in NORMAL SALINE 50 ML IV PRN; -DOCETAXEL IV PRN; -FAMOTIDINE 20 MG in NS 50 ML IV PRN; -NORMAL SALINE 250 ML @ KVO IV PRN; +NORMAL SALINE 250 ML IV PRN; -NORMAL SALINE IV PRN; -PALONOSETRON 0.25 MG/5 ML VIAL IV PRN
[2019-05-29 11:57] VITALS: BP 132/82
== END 2019-05-29 13:28 | disposition home or self-care (01) ==
LOC: II 11:10 → 5TH 12:31 → II 13:28
PROVIDERS: ATTEND Internal Medicine
PROC: 3E0430M Introduction of Antineoplastic, Monoclonal Antibody, into Central Vein, Percutaneous Approach (ICD-10-PCS; principal; 2019-05-29)
PROC: 3E043GC Introduction of Other Therapeutic Substance into Central Vein, Percutaneous Approach (ICD-10-PCS; 2019-05-29)
DX: Z51.11 Encounter for antineoplastic chemotherapy (principal); C09.1 Malignant neoplasm of tonsillar pillar (anterior) (posterior)
CPT/HCPCS: 96413; 96367; J1200; A9270; J9055 ×2; J1642; J3490

== ENCOUNTER 2019-06-05 09:55 | Outpatient (CLI) | payer MEDICARE ==
[~2019-06-05 09:55] MED LIST changes: -DIPHENHYDRAMINE 50 MG in NS 50 ML IV PRN; +DIPHENHYDRAMINE HCL 50 MG in NORMAL SALINE 50 ML IV PRN
[2019-06-05 10:10] VITALS: BP 111/83
== END 2019-06-05 12:23 | disposition home or self-care (01) ==
LOC: II 09:55 → 5TH 09:56 → II 12:23
PROVIDERS: ATTEND Internal Medicine
PROC: 3E0430M Introduction of Antineoplastic, Monoclonal Antibody, into Central Vein, Percutaneous Approach (ICD-10-PCS; principal; 2019-06-05)
PROC: 3E043GC Introduction of Other Therapeutic Substance into Central Vein, Percutaneous Approach (ICD-10-PCS; 2019-06-05)
DX: Z51.11 Encounter for antineoplastic chemotherapy (principal); C09.1 Malignant neoplasm of tonsillar pillar (anterior) (posterior)
CPT/HCPCS: 96413; 96367; J1200; A9270; J9055 ×2; J1642; J3490

== ENCOUNTER 2019-06-18 10:26 | Outpatient (CLI) | payer MEDICARE ==
[~2019-06-18 10:26] MED LIST changes: +CARBOPLATIN IV PRN; -CETUXIMAB IV PRN; +CISPLATIN IV PRN; -CONTAINER EMPTY IV PRN; +DEXAMETHASONE 10 MG in NS 50 ML IV PRN; -DIPHENHYDRAMINE HCL 50 MG in NORMAL SALINE 50 ML IV PRN; +FOSAPREPITANT 150 MG in NS 150 ML IV PRN; +FUROSEMIDE INJ/PF 20 MG/2 ML SDV IV PRN; -NORMAL SALINE 250 ML IV PRN; +NORMAL SALINE 500 ML @ KVO IV PRN; +NORMAL SALINE IV PRN; +PALONOSETRON 0.25 MG/5 ML VIAL IV PRN
[2019-06-18 11:00] VITALS: BP 97/57
== END 2019-06-18 14:45 | disposition home or self-care (01) ==
LOC: II 10:26 → 5TH 10:28 → II 14:45
PROVIDERS: ATTEND Internal Medicine
PROC: 3E04305 Introduction of Other Antineoplastic into Central Vein, Percutaneous Approach (ICD-10-PCS; principal; 2019-06-18)
PROC: 3E0433Z Introduction of Anti-inflammatory into Central Vein, Percutaneous Approach (ICD-10-PCS; 2019-06-18)
PROC: 3E043GC Introduction of Other Therapeutic Substance into Central Vein, Percutaneous Approach (ICD-10-PCS; 2019-06-18)
DX: Z51.11 Encounter for antineoplastic chemotherapy (principal); C09.1 Malignant neoplasm of tonsillar pillar (anterior) (posterior)
CPT/HCPCS: 96413; 96367; 96375; 96361; J9060; J7050; J7040; J1100; J1453; J2469; J1642; 96415; J1940

== ENCOUNTER 2019-06-25 11:06 | Outpatient (CLI) | payer MEDICARE ==
[~2019-06-25 11:06] MED LIST changes: -CARBOPLATIN IV PRN; -DEXAMETHASONE 10 MG in NS 50 ML IV PRN; +DEXAMETHASONE SOD PHOSPHATE 10 MG in NORMAL SALINE 50 ML IV PRN; -FOSAPREPITANT 150 MG in NS 150 ML IV PRN; +FOSAPREPITANT DIMEGLUMINE 150 MG in NORMAL SALINE 150 ML IV PRN; -NORMAL SALINE 500 ML @ KVO IV PRN; +NORMAL SALINE 500 ML IV PRN; +PALONOSETRON 0.25 MG/5 ML SDV IV PRN; -PALONOSETRON 0.25 MG/5 ML VIAL IV PRN
[2019-06-25 11:18] VITALS: BP 139/83
== END 2019-06-25 15:35 | disposition home or self-care (01) ==
LOC: II 11:06 → 5TH 11:08 → II 15:35
PROVIDERS: ATTEND Internal Medicine
PROC: 3E04305 Introduction of Other Antineoplastic into Central Vein, Percutaneous Approach (ICD-10-PCS; principal; 2019-06-25)
PROC: 3E0433Z Introduction of Anti-inflammatory into Central Vein, Percutaneous Approach (ICD-10-PCS; 2019-06-25)
PROC: 3E043GC Introduction of Other Therapeutic Substance into Central Vein, Percutaneous Approach (ICD-10-PCS; 2019-06-25)
DX: Z51.11 Encounter for antineoplastic chemotherapy (principal); C09.1 Malignant neoplasm of tonsillar pillar (anterior) (posterior)
CPT/HCPCS: 96413; 96367; 96375; 96361; J9060; J1940; J7050; J7040; J1100; J1453; J2469; J1642; 96415

== ENCOUNTER → 2019-09-01 | Outpatient (CLI) | payer MEDICARE, MEDICAID ==
--- NOTE | 2019-09-01 11:50 | RADIOLOGY REPORT (SQ) ---
EXAM DESCRIPTION: CT SOFT TISSUE NECK COMBO COMPLETED DATE/TIME: 09/01/2019 10:35 am REASON FOR STUDY: MALIGNANT NEOPLASM OF TONSILLAR PILLAR (C09.1) C09.1 MALIG NEOPLASM OF TONSILLAR PILLAR (ANTERIOR) (POSTERI COMPARISON: 05/26/2019 TECHNIQUE: Pre and post IV contrasted scanning from skull base through lung apices with review of azucena ne, soft tissue and lung windows. Reconstructed coronal and sagittal MPR images reviewed. All image s stored on PACS. All CT scanners at this facility use dose modulation, iterative reconstruction, and/or weight based d osing when appropriate to reduce radiation dose to as low as reasonably achievable (ALARA). [facility]: Dose Right [facility]: CareDose [facility]: Dose Right [facility]: Teradose 4D [facility]: [employer] CONTRAST TYPE AND DOSE: contrast/concentration: Isovue 350.00 mg/ml; Total Contrast Delivered: 75.0 ml; Total Saline Delivered: 55.0 ml RENAL FUNCTION: Creatinine 0.5 RADIATION DOSE: . LIMITATIONS: None. 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 MAJOR SALIVARY GLANDS: No solid or cystic masses. No inflammatory changes. LYMPHADENOPATHY: Persistent 2 cm level 1 left neck lymph node. Slightly smaller in size when compare d to prior study where it measured 2.2 cm. Small stable lymph nodes at the same level on the right. MUCOSAL MASSES OR ASYMMETRY: The left tonsillar mass has increased in size. Overall size on today's exam is 2.3 x 3.6 cm. Previously this measured 2.8 x 3.0 cm. LARYNX/CORDS: No abnormal findings. VASCULAR STRUCTURES: The major vessels are patent. LUNG APICES: Clear. BONES: Intact. THYROID: Normal size. No masses. PARANASAL SINUSES: Clear. OTHER: No other significant finding. IMPRESSION: Left tonsillar mass appears slightly larger in size as discussed. On today's exam the l esion measured 2.3 x 3.6 cm. Previously largest diameter was 3.0 cm. Left level 1 lymph node has sl ightly decreased in size measured 2 cm on today's study compared to 2.2 mm on previous exam. This co uld be due to scan variance. TECHNICAL DOCUMENTATION: JOB ID: [id number] Quality ID # [id number]: Final reports with documentation of one or more dose reduction techniques (e.g., Au tomated exposure control, adjustment of the mA and/or kV according to patient size, use of iterative reconstruction technique) 2010 [employer]- All Rights Reserved Reading location - IP/workstation name: [email or web address]
== END ==
LOC: RAD 10:06
PROVIDERS: ATTEND Radiology Radiation Oncology
DX: C09.1 Malignant neoplasm of tonsillar pillar (anterior) (posterior) (principal)
CPT/HCPCS: 82565; 70492; J1642

== ENCOUNTER → 2019-10-11 | Outpatient (CLI) | payer MEDICARE, MEDICAID ==
[2019-10-11 09:56] LABS: ABSOLUTE EOSINOPHILS # (AUTO) 0.1 10^3/uL (0.0-0.6); ABSOLUTE LYMPHOCYTES (AUTO) 1.1 10^3/uL (0.5-4.7); ABSOLUTE MONOCYTES (AUTO) 0.5 10^3/uL (0.1-1.4); ABSOLUTE NEUT (AUTO) 2.4 10^3/uL (1.7-8.2); BASOPHILS % (AUTO) 0.4 % (0-2); EOSINOPHILS % (AUTO) 1.3 % (0-6); HEMATOCRIT 42.8 % (37.9-51.0); HEMOGLOBIN 15.2 g/dL (13.5-17.0); LYMPHOCYTES % (AUTO) 26.6 % (13-45); MEAN CORPUSCULAR HEMOGLOBIN 35.2 pg (27.0-33.4); MEAN CORPUSCULAR HGB CONC 35.6 g/dL (32.0-36.0); MEAN CORPUSCULAR VOLUME 99 fl (80-97); PLATELET COUNT 115 10^3/uL (150-450); RED BLOOD COUNT 4.33 10^6/uL (4.35-5.55); RED CELL DISTRIBUTION WIDTH 12.5 % (11.5-14.0); SEGMENTED NEUTROPHILS % (AUTO) 59.7 % (42-78); TOTAL CELLS COUNTED % (AUTO) 100 %
--- NOTE | 2019-10-11 10:22 | RADIOLOGY REPORT (SQ) ---
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 NUMBER OF VIEWS: Three views. TECHNIQUE: AP, lateral, and tilt views of the sacrum and coccyx. LIMITATIONS: None. FINDINGS: MINERALIZATION: Normal. BONES: No acute fracture or dislocation. No worrisome bone lesions. SOFT TISSUES: No soft tissue swelling. No foreign body. OTHER: No other significant finding. IMPRESSION: NEGATIVE STUDY OF THE SACRUM AND COCCYX. TECHNICAL DOCUMENTATION: JOB ID: [id number] 2010 [employer]- All Rights Reserved Reading location - IP/workstation name: [email or web address]
--- NOTE | 2019-10-11 10:26 | RADIOLOGY REPORT (SQ) ---
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 NUMBER OF VIEWS: Five views including obliques. TECHNIQUE: AP, lateral, oblique, and sacral radiographic images acquired of the lumbar spine. LIMITATIONS: None. FINDINGS: MINERALIZATION: Normal. SEGMENTATION: Normal. No transitional anatomy. ALIGNMENT: Normal. VERTEBRAE: Maintained height. No fracture or worrisome bone lesion. DISCS: Degenerative disc disease with disc space narrowing most marked at L1-2 and L2-3. POSTERIOR ELEMENTS: Pedicles and facets are intact. No pars defect or posterior arch defects. HARDWARE: None in the spine. PARASPINAL SOFT TISSUES: Normal. PELVIS: Intact as visualized. No fractures or worrisome bone lesions. SI joints intact. OTHER: No other significant finding. IMPRESSION: Degenerative disc disease most marked L1-2 and L2-3. TECHNICAL DOCUMENTATION: JOB ID: [id number] 2010 [employer]- All Rights Reserved Reading location - IP/workstation name: [email or web address]
[2019-10-11 10:36] LABS: ALBUMIN 4.8 g/dL (3.5-5.0); ALKALINE PHOSPHATASE 60 U/L (38-126); ANION GAP 11 (5-19); ASPARTATE AMINO TRANSFERASE 16 U/L (17-59); BILIRUBIN,TOTAL 0.6 mg/dL (0.2-1.3); BLOOD UREA NITROGEN 9 mg/dL (7-20); CARBON DIOXIDE 28 mmol/L (22-30); CHLORIDE 103 mmol/L (98-107); CHOLESTEROL 218.56 mg/dL (0-200); GLUCOSE 94 mg/dL (75-110); POTASSIUM 4.9 mmol/L (3.6-5.0); TOTAL PROTEIN 7.9 g/dL (6.3-8.2); TRIGLYCERIDES 151 mg/dL (<150)
[2019-10-11 10:48] LABS: DIRECT LDL 162 mg/dL (<100); VLDL CHOLESTEROL 30.2 mg/dL (10-31)
== END ==
LOC: OD 08:09
PROVIDERS: ATTEND Family Medicine Geriatric Medicine
DX: M51.36 Other intervertebral disc degeneration, lumbar region (principal); M54.5 Low back pain; C77.9 Secondary and unspecified malignant neoplasm of lymph node, unspecified; R79.89 Other specified abnormal findings of blood chemistry; Z79.899 Other long term (current) drug therapy
CPT/HCPCS: 36415; 72110; 72220; 80053; 80061; 84443; 85025